=== PATIENT | male | born 1985 | race Caucasian/White ===

== ENCOUNTER 2020-11-06 11:15 | Emergency (ER) | payer MEDICARE ==
[2020-11-06 12:32] LABS: #Basophils 0.1 thou/uL (0.0-0.2); #Eosinphils 0.4 thou/uL (0.0-0.7); #Lymphocytes 2.1 thou/uL (1.20-3.40); #Monocytes 0.4 thou/uL (0.11-0.59); #Neutrophils 3.5 thou/uL (1.40-6.50); %Eosinophils 5.9 % (0.0-10.0); %Lymphocytes 32.5 % (21.0-51.0); %Monocytes 6.7 % (0.0-10.0); Hemoglobin 17.8 g/dL (14.0-18.0); Mean Corpuscular HGB CONC 34.4 g/dL (32.0-36.0); Mean Corpuscular Hemoglobin 30.9 pg (27.0-31.0); Mean Corpuscular Volume 89.9 fL (78.0-98.0); Mean Platelet Volume 7.4 fL (7.4-10.4); Platelet Count 189 thou/uL (130-400); RBC Distribution Width 11.2 % (11.5-14.5); Red Blood Cell (RBC) Count 5.75 mill/uL (4.70-6.10); White Blood Cell (WBC) Count 6.5 thou/uL (4.8-10.8)
[2020-11-06 12:55] LABS: ALT (SGPT) 33 U/L (8-55); AST (SGOT) 19 U/L (5-34); Albumin 4.5 g/dL (3.5-5.0); Alkaline Phosphatase 64 U/L (40-110); Anion Gap 11 mmol/L (10-20); BUN (Urea Nitrogen) 12 mg/dL (8.9-20.6); Bilirubin, Total 1.3 mg/dL (0.2-1.2); CK (CPK) 68 U/L (30-200); Calc. Creatinine Clearance 0 mL/min (70-130); Calcium 9.2 mg/dL (7.8-10.44); Carbon Dioxide 25 mmol/L (22-29); Chloride 105 mmol/L (98-107); Globulin 2.6 g/dL (2.4-3.5); Glucose 90 mg/dL (70-105); Protein, Total 7.1 g/dL (6.0-8.3); Sodium 137 mmol/L (136-145)
[2020-11-06] MEDS ORDERED: Lidocaine Viscous Sol 2% 15 ml UD Cup ONE (15:03)
[2020-11-06] MEDS ORDERED: Mag-Al 1200 mg/1200 mg/30 ML UDCUP ONE (15:03)
== END 2020-11-06 15:49 | disposition home or self-care (01) ==
LOC: ERS 11:15
DX: R07.9 Chest pain, unspecified (principal); R10.9 Unspecified abdominal pain; R06.02 Shortness of breath
CPT/HCPCS: 71045; 80053; 82550; 84484; 85025; 93005